=== PATIENT | male | born 1990 | race Caucasian/White ===

== ENCOUNTER 2018-08-08 05:20 | Emergency (ER) | payer OTHER ==
[~2018-08-08] VITALS: Ht 175.3 cm; Wt 85.7 kg
[2018-08-08 05:28] VITALS: BP_SYST 147
--- NOTE | 2018-08-08 05:28 | NUR ---
Patient to ER bed 8 to gown for evaluation. Side rails up.
--- NOTE | 2018-08-08 05:30 | NUR ---
Pt came to the ED for a sore throat with associated blood. Reported vomiting after. Reports he was brushing his teeth and noticed some bleeding of his gums. Reported some body aches, nausea and weakness. Reports taking Tylenol witho no improvement. No other injuries/complaints noted. Will cont. to monitor.
--- NOTE | 2018-08-08 05:36 | NUR ---
ER Dr. Coley at bedside examining patient.
[2018-08-08] MEDS ORDERED: PREDNISONE 20 MG TABLET PO ONE (05:45)
[2018-08-08] MEDS ORDERED: cefTRIAXone 1 GM VIAL IM ONE (05:45)
[2018-08-08] MEDS ORDERED: ONDANSETRON 4 MG ODT TAB PO ONE (05:45)
[2018-08-08] MEDS ORDERED: LIDOCAINE 1%, 20 ML MDV 20 ML ONE (05:58)
[2018-08-08 06:05] VITALS: BP_SYST 147
--- NOTE | 2018-08-08 06:05 | NUR ---
Patient given written and verbal discharge instructions and verbalizes understanding. ER MD Dr. Coley discussed with patient the results and treatment provided. Patient in stable condition. ID arm band removed. Rx of Flomax, norco and motrin given. Patient educated on pain management and to follow up with PMD. Pain Scale 0/10. Opportunity for questions provided and answered. Medication side effect fact sheet provided.
== END 2018-08-08 06:05 | disposition home or self-care (01) ==
LOC: SED 05:20
DX: J36 Peritonsillar abscess (principal); R53.83 Other fatigue
CPT/HCPCS: 96372; 99283; J0696; J2001; J7512; Q0162

== ENCOUNTER 2019-05-05 11:42 | Emergency (ER) | payer OTHER ==
[~2019-05-05] VITALS: Ht 175.3 cm; Wt 97.5 kg
[2019-05-05 11:47] VITALS: BP_SYST 147
--- NOTE | 2019-05-05 11:55 | NUR ---
Patient triaged and placed in waiting room. VSS and patient appears in no acute distress at this time. Accompanied by , awaiting available bed, and MD notified of need for MSE.
--- NOTE | 2019-05-05 12:45 | NUR ---
Patient to ER bed 1 to gown for evaluation. Side rails up.
[2019-05-05] MEDS ORDERED: KETOROLAC TROMETHAMINE 30 MG VIAL IVP ONE (13:00)
--- NOTE | 2019-05-05 13:00 | NUR ---
ER at bedside examining patient.
--- NOTE | 2019-05-05 13:15 | NUR ---
Patient is taken to CT via gurney, in stable condition.
--- NOTE | 2019-05-05 13:30 | NUR ---
Meir roy in ED - 05/05/19 at 1957 by AVANI Patient to bed 1 to kellyman[facility] for evaluation. Side rails up.
--- NOTE | 2019-05-05 13:30 | NUR ---
# 20 gauge angiocath placed to LAC. Use of asceptic technique. Opsite placed over site. Blood return noted. Blood for lab drawn from site. Flushed with 10 cc of normal saline. No evidence of infiltration noted. Patient tolerated well.
[2019-05-05 13:42] LABS: BASOPHILS % (AUTO) 0.2 % (0.0-2.0); EOSINOPHILS # (AUTO) 0.1 K/uL (0.0-0.4); HEMATOCRIT 45.7 % (36-54); HEMOGLOBIN 15.7 g/dL (14.0-18.0); LYMPHOCYTES # (AUTO) 0.9 K/uL (1.0-5.5); LYMPHOCYTES % (AUTO) 13.9 % (20.5-51.5); MEAN CORPUSCULAR HEMOGLOBIN 32 pg (27-31); MEAN CORPUSCULAR HGB CONC 34 % (32-36); MEAN CORPUSCULAR VOLUME 92 fL (79.0-98.0); MONOCYTES # (AUTO) 0.5 K/uL (0.0-1.0); MONOCYTES % (AUTO) 7.6 % (1.7-9.3); NEUTROPHILS # (AUTO) 5.1 K/uL (1.8-7.7); NEUTROPHILS % (AUTO) 76.3 % (40.0-70.0); PLATELET COUNT (AUTO) 147 K/uL (130-430); RED BLOOD CELL COUNT(AUTO) 4.97 MIL/uL (4.2-6.2); RED CELL DISTRIBUTION WIDTH 12.9 % (9.0-15.0); WHITE BLOOD COUNT (AUTO) 6.7 K/uL (4.8-10.8)
[2019-05-05] MEDS ORDERED: NACL 0.9% 1,000 ML IV ONE (13:45)
[2019-05-05 13:53] LABS: CALCIUM 8.7 mg/dL (8.4-11.0); CREATININE 0.82 mg/dL (0.55-1.30); POTASSIUM 3.8 mmol/L (3.5-5.1)
--- NOTE | 2019-05-05 14:00 | NUR ---
pt toleratd medication well.
[2019-05-05 14:10] LABS: ALBUMIN 3.7 g/dL (3.4-4.8); TOTAL BILIRUBIN 1.2 mg/dL (0.0-1.0)
[2019-05-05 14:49] VITALS: BP_SYST 140
--- NOTE | 2019-05-05 14:49 | NUR ---
Patient given written and verbal discharge instructions and verbalizes understanding. ER MD discussed with patient the results and treatment provided. Patient in stable condition. ID arm band removed. IV catheter removed intact and dressing applied, no active bleeding. Rx of golytely,tramadol given. Patient educated on pain management and to follow up with PMD. Pain Scale 2. Opportunity for questions provided and answered. Medication side effect fact sheet provided.
== END 2019-05-05 14:49 | disposition home or self-care (01) ==
LOC: SED 11:42
DX: R10.84 Generalized abdominal pain (principal); R11.2 Nausea with vomiting, unspecified
CPT/HCPCS: 36415; 74176; 80053; 83605; 83690; 85025; 96361; 96374; 99284; J1885; J7030

== ENCOUNTER 2020-02-22 19:52 | Emergency (ER) | payer BC, SELFPAY ==
[~2020-02-22] VITALS: Ht 175.3 cm; Wt 81.6 kg
[2020-02-22 20:17] VITALS: BP_SYST 120
--- NOTE | 2020-02-22 20:20 | NUR ---
Patient triaged and placed in ER Tent. VSS and patient appears in no acute distress at this time. Awaiting available bed, and MD notified of need for MSE.
--- NOTE | 2020-02-22 20:21 | NUR ---
Patient came from home for evaluation of SOB and chest pain. Patient reports he tested positive for the COVID-19 on Sunday.
--- NOTE | 2020-02-22 21:15 | NUR ---
LAVELLE Maxwell in tent examining patient.
[2020-02-22 22:24] LABS: BASOPHILS % (AUTO) 0.5 % (0.0-2.0); EOSINOPHILS % (AUTO) 0.1 % (0.0-4.0); HEMATOCRIT 47.6 % (36-54); HEMOGLOBIN 16.7 g/dL (14.0-18.0); LYMPHOCYTES # (AUTO) 0.5 K/uL (1.0-5.5); LYMPHOCYTES % (AUTO) 7.2 % (20.5-51.5); MEAN CORPUSCULAR HEMOGLOBIN 32 pg (27-31); MEAN CORPUSCULAR HGB CONC 35 % (32-36); MEAN CORPUSCULAR VOLUME 90 fL (79.0-98.0); MONOCYTES # (AUTO) 0.4 K/uL (0.0-1.0); MONOCYTES % (AUTO) 5.3 % (1.7-9.3); NEUTROPHILS # (AUTO) 6.1 K/uL (1.8-7.7); NEUTROPHILS % (AUTO) 86.9 % (40.0-70.0); PLATELET COUNT (AUTO) 137 K/uL (130-430); RED BLOOD CELL COUNT(AUTO) 5.26 MIL/uL (4.2-6.2); RED CELL DISTRIBUTION WIDTH 12.4 % (9.0-15.0); WHITE BLOOD COUNT (AUTO) 7.1 K/uL (4.8-10.8)
[2020-02-22 22:34] LABS: CALCIUM 8.8 mg/dL (8.4-11.0); CREATININE 0.86 mg/dL (0.55-1.30); POTASSIUM 3.7 mmol/L (3.5-5.1)
[2020-02-22 22:41] LABS: ALBUMIN 3.7 g/dL (3.4-4.8); TOTAL BILIRUBIN 0.9 mg/dL (0.0-1.0)
[2020-02-22 22:44] LABS: INR 0.9 (0.80-1.20); PROTHROMBIN TIME 9.3 SECS (9.5-12.5)
[2020-02-22 23:19] VITALS: BP_SYST 118
--- NOTE | 2020-02-22 23:21 | NUR ---
Patient given written and verbal discharge instructions and verbalizes understanding. ER MD discussed with patient the results and treatment provided. Patient in stable condition. ID arm band removed. Patient educated on pain management and to follow up with PMD. Pain Scale 0/10. Opportunity for questions provided and answered. Medication side effect fact sheet provided.
== END 2020-02-22 23:21 | disposition home or self-care (01) ==
LOC: SED 19:52
DX: U07.1 COVID-19 (principal); R06.02 Shortness of breath; R07.89 Other chest pain
CPT/HCPCS: 36415; 71045; 80053; 82550-TC; 83880; 84484; 85025; 85379; 85610-TC; 93005; 99284

== ENCOUNTER 2020-11-02 17:16 | Emergency (ER) | payer BC, SELFPAY ==
[~2020-11-02] VITALS: Ht 175.3 cm; Wt 83.9 kg
[2020-11-02 17:38] VITALS: BP_SYST 126
[2020-11-02 19:25] LABS: EOSINOPHILS # (AUTO) 0.1 K/uL (0.0-0.4); MONOCYTES # (AUTO) 0.5 K/uL (0.0-1.0); NEUTROPHILS # (AUTO) 2.1 K/uL (1.8-7.7)
[2020-11-02 19:32] LABS: BASOPHILS % (AUTO) 0.7 % (0.0-2.0); EOSINOPHILS % (AUTO) 1.1 % (0.0-4.0); HEMATOCRIT 42.6 % (36-54); HEMOGLOBIN 15.3 g/dL (14.0-18.0); LYMPHOCYTES # (AUTO) 2.7 K/uL (1.0-5.5); LYMPHOCYTES % (AUTO) 50.5 % (20.5-51.5); MEAN CORPUSCULAR HEMOGLOBIN 33 pg (27-31); MEAN CORPUSCULAR HGB CONC 36 % (32-36); MEAN CORPUSCULAR VOLUME 92 fL (79.0-98.0); MONOCYTES % (AUTO) 9.2 % (1.7-9.3); NEUTROPHILS % (AUTO) 38.5 % (40.0-70.0); PLATELET COUNT (AUTO) 111 K/uL (130-430); RED BLOOD CELL COUNT(AUTO) 4.64 MIL/uL (4.2-6.2); RED CELL DISTRIBUTION WIDTH 12.6 % (9.0-15.0); WHITE BLOOD COUNT (AUTO) 5.4 K/uL (4.8-10.8)
[2020-11-02 19:36] LABS: CALCIUM 8.1 mg/dL (8.4-11.0); CREATININE 1.01 mg/dL (0.55-1.30); POTASSIUM 4.1 mmol/L (3.5-5.1)
[2020-11-02 19:42] LABS: ALBUMIN 3.5 g/dL (3.4-4.8); TOTAL BILIRUBIN 1.1 mg/dL (0.0-1.0)
--- NOTE | 2020-11-02 20:40 | NUR ---
Patient to ER bed HALLWAY 1 to gown for evaluation. Side rails up.
--- NOTE | 2020-11-02 20:41 | NUR ---
PATIENT AAOX4 AND AMBULATORY FROM HOME C/O HIGH BLOOD SUGAR READING AT HOME 345. FEELING INCREASED THURST, CONSTANT HEADACHES, FREQUENCY IN URINE. VSS. DENIES SOB OR CHEST PAIN. TOOK ADVIL BEFORE ARRIVING WITH PAIN RELIEF.
[2020-11-02 20:46] LABS: BILIRUBIN,URINE NEGATIVE (NEGATIVE); BLOOD, URINE NEGATIVE (NEGATIVE); CLARITY/URINE CLEAR (CLEAR); COLOR,URINE YELLOW (YELLOW); GLUCOSE,URINE 3+ (NEGATIVE); KETONES,URINE TRACE (NEGATIVE); LEUKOCYTE ESTERASE ,URINE NEGATIVE (NEGATIVE); NITRITE, URINE NEGATIVE (NEGATIVE); PH,URINE 5.5 (5.0-8.0); PROTEIN URINE NEGATIVE (NEGATIVE); UROBILINOGEN,URINE 0.2 (0.2-1.0)
[2020-11-02 21:00] LABS: BACTERIA,URINE RARE /HPF (None Seen); WBC,URINE NONE SEEN /HPF (0-3)
[2020-11-02 21:01] LABS: RBC,URINE NONE SEEN /HPF (0-3)
--- NOTE | 2020-11-02 21:09 | NUR ---
DR. WILLIS AT BEDSIDE FOR EVALUATION.
[2020-11-02] MEDS ORDERED: NACL 0.9% 1,000 ML IV ONE (21:15)
--- NOTE | 2020-11-02 21:28 | NUR ---
# 18 gauge angiocath placed to LEFT AC Use of asceptic technique. Opsite placed over site. Blood return noted. Flushed with 10 cc of normal saline. No evidence of infiltration noted. Patient tolerated well. Medicated per MD orders. IVF infusing with no s/s of infiltration at this time. Will cont to monitor
[2020-11-02] MEDS ORDERED: GLU500 PO (22:15)
--- NOTE | 2020-11-02 22:20 | NUR ---
BLOOD GLUCOSE RECHECKED, 227. MD WILLIS MADE AWARE.
[2020-11-02] MEDS ORDERED: metFORMIN HCL 500 MG TABLET PO ONE (22:30)
[2020-11-02 22:34] VITALS: BP_SYST 126
--- NOTE | 2020-11-02 22:34 | NUR ---
Patient given written and verbal discharge instructions and verbalizes understanding. DR. ALBA VALDERRAMA MD discussed with patient the results and treatment provided. Patient in stable condition. ID arm band removed. Rx of METFORMIN given. Patient educated on pain management and to follow up with PMD. Pain Scale 0/10. Opportunity for questions provided and answered. Medication side effect fact sheet provided.
== END 2020-11-02 22:34 | disposition home or self-care (01) ==
LOC: SED 17:16
DX: E11.65 Type 2 diabetes mellitus with hyperglycemia (principal); R51.9 Headache, unspecified; Z79.84 Long term (current) use of oral hypoglycemic drugs
CPT/HCPCS: 36415; 80053; 81000; 82962; 85025; 96360; 99283; J7030

== ENCOUNTER 2020-12-12 22:14 | Emergency (ER) | payer BC, MEDICAID ==
[~2020-12-12] VITALS: Ht 172.7 cm; Wt 81.6 kg
[~2020-12-12 22:14] MED LIST: GLU500 PO
[2020-12-12 22:18] VITALS: BP_SYST 126
[2020-12-12] MEDS ORDERED: PANTOPRAZOLE SODIUM 40 MG/VIAL (PROTONIX) IVP ONE (23:30)
[2020-12-12] MEDS ORDERED: LIDOCAINE VISCOUS 2%, 15 ML UDC MM ONE (23:30)
[2020-12-12] MEDS ORDERED: METOCLOPRAMIDE HCL 10 MG/2 ML VIAL IVP ONE (23:30)
[2020-12-12] MEDS ORDERED: MAG-AL HYDROX/SIMETH 30 ML UDC PO ONE (23:30)
[2020-12-12 23:39] LABS: EOSINOPHILS # (AUTO) 0.1 K/uL (0.0-0.4); MONOCYTES # (AUTO) 0.6 K/uL (0.0-1.0); NEUTROPHILS # (AUTO) 3.6 K/uL (1.8-7.7); WHITE BLOOD COUNT (AUTO) 6.8 K/uL (4.8-10.8)
[2020-12-12 23:40] LABS: CALCIUM 8.9 mg/dL (8.4-11.0); CREATININE 0.84 mg/dL (0.55-1.30); POTASSIUM 3.7 mmol/L (3.5-5.1)
[2020-12-12 23:43] LABS: BASOPHILS % (AUTO) 0.3 % (0.0-2.0); EOSINOPHILS % (AUTO) 1.6 % (0.0-4.0); HEMATOCRIT 41.3 % (36-54); HEMOGLOBIN 14.9 g/dL (14.0-18.0); LYMPHOCYTES # (AUTO) 2.4 K/uL (1.0-5.5); LYMPHOCYTES % (AUTO) 35.6 % (20.5-51.5); MEAN CORPUSCULAR HEMOGLOBIN 33 pg (27-31); MEAN CORPUSCULAR HGB CONC 36 % (32-36); MEAN CORPUSCULAR VOLUME 91 fL (79.0-98.0); MONOCYTES % (AUTO) 8.9 % (1.7-9.3); NEUTROPHILS % (AUTO) 53.6 % (40.0-70.0); PLATELET COUNT (AUTO) 133 K/uL (130-430); RED BLOOD CELL COUNT(AUTO) 4.52 MIL/uL (4.2-6.2)
[2020-12-12 23:46] LABS: ALBUMIN 3.6 g/dL (3.4-4.8); TOTAL BILIRUBIN 0.8 mg/dL (0.0-1.0)
[2020-12-13] MEDS ORDERED: NACL 0.9% 1,000 ML IV ONE (01:15)
[2020-12-13] MEDS ORDERED: METO-290 PO (02:55)
[2020-12-13] MEDS ORDERED: PRO40 PO (02:55)
[2020-12-13 03:05] VITALS: BP_SYST 124
== END 2020-12-13 03:05 | disposition home or self-care (01) ==
LOC: SED 22:14
DX: R07.89 Other chest pain (principal); K21.9 Gastro-esophageal reflux disease without esophagitis; E11.9 Type 2 diabetes mellitus without complications; Z79.899 Other long term (current) drug therapy
CPT/HCPCS: 36415; 71045; 80053; 82962; 83690; 84484; 85025; 93005; 96361; 96374; 96375; 99285; C9113; J2001; J2765; J7030

== ENCOUNTER 2021-01-06 05:09 | Emergency (ER) | payer MEDICAID ==
[~2021-01-06] VITALS: Ht 175.3 cm; Wt 81.6 kg
[~2021-01-06 05:09] MED LIST changes: +METO-290 PO; +PRO40 PO
[2021-01-06 05:15] VITALS: BP_SYST 115
[2021-01-06] MEDS ORDERED: KETOROLAC TROMETHAMINE 30 MG VIAL IM ONE (05:30)
[2021-01-06] MEDS ORDERED: ONDANSETRON HCL 4 MG/2 ML VIAL IVP ONE (05:45)
[2021-01-06] MEDS ORDERED: KETOROLAC TROMETHAMINE 30 MG VIAL IVP ONE (05:45)
[2021-01-06] MEDS ORDERED: MORPHINE 4 MG INJ. 4 MG/ML VIAL IVP ONE (05:45)
[2021-01-06] MEDS ORDERED: ASPIRIN 81 MG TAB.CHEW PO ONE (05:45)
[2021-01-06] MEDS ORDERED: ONDANSETRON HCL 4 MG/2 ML VIAL ONE (05:50)
[2021-01-06] MEDS ORDERED: KETOROLAC TROMETHAMINE 30 MG VIAL ONE (05:50)
[2021-01-06] MEDS ORDERED: ASPIRIN 325 MG TABLET (ECOTRIN) PO ONE (05:50)
[2021-01-06] MEDS ORDERED: MORPHINE 4 MG INJ. 4 MG/ML VIAL ONE (05:50)
[2021-01-06 06:17] LABS: BASOPHILS % (AUTO) 0.4 % (0.0-2.0); EOSINOPHILS # (AUTO) 0.1 K/uL (0.0-0.4); EOSINOPHILS % (AUTO) 1.5 % (0.0-4.0); HEMATOCRIT 42.2 % (36-54); HEMOGLOBIN 14.8 g/dL (14.0-18.0); LYMPHOCYTES # (AUTO) 2.2 K/uL (1.0-5.5); LYMPHOCYTES % (AUTO) 28.5 % (20.5-51.5); MEAN CORPUSCULAR HEMOGLOBIN 32 pg (27-31); MEAN CORPUSCULAR HGB CONC 35 % (32-36); MEAN CORPUSCULAR VOLUME 92 fL (79.0-98.0); MONOCYTES # (AUTO) 0.8 K/uL (0.0-1.0); MONOCYTES % (AUTO) 10.8 % (1.7-9.3); NEUTROPHILS # (AUTO) 4.5 K/uL (1.8-7.7); NEUTROPHILS % (AUTO) 58.8 % (40.0-70.0); PLATELET COUNT (AUTO) 205 K/uL (130-430); RED BLOOD CELL COUNT(AUTO) 4.58 MIL/uL (4.2-6.2); RED CELL DISTRIBUTION WIDTH 12.7 % (9.0-15.0); WHITE BLOOD COUNT (AUTO) 7.6 K/uL (4.8-10.8)
[2021-01-06 06:27] LABS: ALBUMIN 3.7 g/dL (3.4-4.8); CALCIUM 8.5 mg/dL (8.4-11.0); CREATININE 0.74 mg/dL (0.55-1.30); POTASSIUM 3.8 mmol/L (3.5-5.1)
[2021-01-06] MEDS ORDERED: ASPI-862 PO (07:52)
[2021-01-06 08:19] VITALS: BP_SYST 115
== END 2021-01-06 08:15 | disposition home or self-care (01) ==
LOC: SED 05:09
DX: I31.9 Disease of pericardium, unspecified (principal); E11.9 Type 2 diabetes mellitus without complications; Z79.84 Long term (current) use of oral hypoglycemic drugs; Z79.899 Other long term (current) drug therapy
CPT/HCPCS: 36415; 71045; 80053; 83880; 84484; 85025; 93005; 96374; 96375; 99285; J1885; J2270; J2405

== ENCOUNTER 2021-01-09 08:15 | Emergency (ER) | payer MEDICAID ==
[~2021-01-09] VITALS: Ht 175.3 cm; Wt 79.4 kg
[~2021-01-09 08:15] MED LIST changes: +ASPI-862 PO
[2021-01-09 08:20] VITALS: BP_SYST 139
--- NOTE | 2021-01-09 08:25 | NUR ---
Patient to ER bed 6 for evaluation. Side rails up. Assumed care.
--- NOTE | 2021-01-09 08:30 | NUR ---
Pt. bib with c/o chest pain, mild SOB, and CRUMP, pt. states was here and dx. with pericarditis and told to come in today for f/u, pt. states little to no improvement in symptoms, rhonci heard on lung auscultation, rates pain 08/12
--- NOTE | 2021-01-09 08:30 | NUR ---
ER at bedside examining patient.
--- NOTE | 2021-01-09 08:53 | NUR ---
EKG faxed to [facility] for reading
--- NOTE | 2021-01-09 08:53 | NUR ---
Faxed EKG to [facility] ER. will call to [facility] if [facility] has received EKG.
--- NOTE | 2021-01-09 08:58 | NUR ---
Faxed EKG to [facility], Spoke to Chucky. fax: [phone]
[2021-01-09] MEDS ORDERED: COLCHICINE 0.6 MG TABLET PO ONE (09:00)
[2021-01-09 09:08] LABS: BASOPHILS % (AUTO) 0.6 % (0.0-2.0); EOSINOPHILS # (AUTO) 0.1 K/uL (0.0-0.4); HEMATOCRIT 38.7 % (36-54); HEMOGLOBIN 13.4 g/dL (14.0-18.0); LYMPHOCYTES # (AUTO) 1.7 K/uL (1.0-5.5); LYMPHOCYTES % (AUTO) 24.5 % (20.5-51.5); MEAN CORPUSCULAR HEMOGLOBIN 32 pg (27-31); MEAN CORPUSCULAR HGB CONC 35 % (32-36); MEAN CORPUSCULAR VOLUME 92 fL (79.0-98.0); MONOCYTES # (AUTO) 0.8 K/uL (0.0-1.0); MONOCYTES % (AUTO) 11.3 % (1.7-9.3); NEUTROPHILS # (AUTO) 4.3 K/uL (1.8-7.7); NEUTROPHILS % (AUTO) 61.6 % (40.0-70.0); PLATELET COUNT (AUTO) 211 K/uL (130-430); RED CELL DISTRIBUTION WIDTH 12.7 % (9.0-15.0); WHITE BLOOD COUNT (AUTO) 6.9 K/uL (4.8-10.8)
--- NOTE | 2021-01-09 09:08 | NUR ---
Chucky [facility], called back and stated she has spoke to the [employer]electric [employer] electrical engineer and he stated that it is not a STEMI, call transferred to Dr. Araujo to speak to Chucky.
[2021-01-09 09:31] LABS: CALCIUM 8.4 mg/dL (8.4-11.0); CREATININE 0.81 mg/dL (0.55-1.30); POTASSIUM 3.7 mmol/L (3.5-5.1)
[2021-01-09 09:36] LABS: ALBUMIN 3.2 g/dL (3.4-4.8); TOTAL BILIRUBIN 1.2 mg/dL (0.0-1.0)
[2021-01-09] MEDS ORDERED: IBUPROFEN 800 MG TABLET PO ONE (09:45)
[2021-01-09 10:09] LABS: C-REACTIVE PROTEIN QUANT 20.8 mg/dL (0-0.5)
[2021-01-09] MEDS ORDERED: IBUPROFEN 800 MG TABLET ONE (10:52)
[2021-01-09] MEDS ORDERED: COLCHICINE 0.6 MG TABLET PO SCH (11:00)
[2021-01-09] MEDS ORDERED: COLC0.6T67 PO (11:01)
[2021-01-09] MEDS ORDERED: HYDR-3917 PO (11:32)
[2021-01-09 11:40] VITALS: BP_SYST 116
--- NOTE | 2021-01-09 11:42 | NUR ---
Patient given written and verbal discharge instructions and verbalizes understanding. ER Dr. Araujo discussed with patient the results and treatment provided. Patient in stable condition. ID arm band removed. IV catheter removed intact and dressing applied, no active bleeding. Rx of Colchicine given. Patient educated on pain management and to follow up with PMD. Pain Scale 0. Opportunity for questions provided and answered. Medication side effect fact sheet provided.
== END 2021-01-09 11:42 | disposition home or self-care (01) ==
LOC: SED 08:15
DX: I31.9 Disease of pericardium, unspecified (principal); E11.9 Type 2 diabetes mellitus without complications; Z79.82 Long term (current) use of aspirin; Z79.899 Other long term (current) drug therapy
CPT/HCPCS: 36415; 71045; 80053; 82550; 83605; 83880; 84484; 85025; 86140; 93005; 99285

== ENCOUNTER 2021-05-04 04:51 | Emergency (ER) | payer MEDICAID ==
[~2021-05-04] VITALS: Ht 175.3 cm; Wt 81.6 kg
[~2021-05-04 04:51] MED LIST changes: +COLC0.6T67 PO; +HYDR-3917 PO
[2021-05-04 05:00] VITALS: BP_SYST 137
[2021-05-04] MEDS ORDERED: NACL 0.9% 1,000 ML IV ONE (05:15)
[2021-05-04] MEDS ORDERED: ONDANSETRON HCL 4 MG/2 ML VIAL IVP ONE (05:15)
[2021-05-04] MEDS ORDERED: KETOROLAC TROMETHAMINE 30 MG VIAL IVP ONE (05:15)
[2021-05-04 05:30] VITALS: BP_SYST 137
[2021-05-04] MEDS ORDERED: ONDA-8 TL (06:16)
== END 2021-05-04 06:10 | disposition home or self-care (01) ==
LOC: SED 04:51
DX: A08.4 Viral intestinal infection, unspecified (principal); E11.9 Type 2 diabetes mellitus without complications; Z79.899 Other long term (current) drug therapy
CPT/HCPCS: 96374; 96375; 99284; J1885; J2405

== ENCOUNTER 2021-11-07 07:47 | Emergency (ER) | payer MEDICAID ==
[~2021-11-07] VITALS: Ht 175.3 cm; Wt 82.6 kg
[~2021-11-07 07:47] MED LIST changes: +ONDA-8 TL
[2021-11-07 07:57] VITALS: BP_SYST 125
--- NOTE | 2021-11-07 08:00 | NUR ---
Patient to ER bed 4 to gown for evaluation. Side rails up. Report given to Nayely PEACE.
--- NOTE | 2021-11-07 08:04 | NUR ---
Assumed care of patient who came from home with gf c/o eye pain and headache r/t cataract surgery two days ago (Sunday). Pt has hx of hyperlipidemia and type II DM. Pt contacted surgeon who made an appt for 11/08/21. Pt states the pain and irriation is becoming unbearable. Denies trauma to eye or loss of vision at this time. A&Ox4, VSS, calm and cooperative. Will continue to monitor and provide care as ordered by provider.
--- NOTE | 2021-11-07 08:04 | NUR ---
LAVELLE Higgins at bedside examining patient.
[2021-11-07] MEDS ORDERED: prednisoLONE 1% OPHTHALMIC SUSPN 5 ML OP ONE (08:45)
[2021-11-07] MEDS ORDERED: OXYCODONE/ACETAMINOPHEN *10*mg/325 mg TABLET PO ONE (08:45)
[2021-11-07] MEDS ORDERED: OFLOXACIN 0.3% OPHTHALMIC DROPS 5 ML OP ONE (08:45)
[2021-11-07] MEDS ORDERED: IBUP-1969 PO ×2 (09:36)
[2021-11-07] MEDS ORDERED: HYDR-3917 PO (09:36)
--- NOTE | 2021-11-07 10:13 | NUR ---
Patient given written and verbal discharge instructions and verbalizes understanding. ER MD discussed with patient the results and treatment provided. Patient in stable condition. ID arm band removed. Rx of Norwell and Ibuprofen given. Patient educated on pain management and to follow up with PMD. Pain Scale 2/10. Opportunity for questions provided and answered. Medication side effect fact sheet provided.
[2021-11-07 10:14] VITALS: BP_SYST 125
[2021-11-07] MEDS ORDERED: CIPROFLOXACIN HCL 0.3% EYE DRP 2.5 ML DROPS OP SCH (11:00)
== END 2021-11-07 10:14 | disposition home or self-care (01) ==
LOC: SED 07:47
DX: H11.002 Unspecified pterygium of left eye (principal); E11.9 Type 2 diabetes mellitus without complications; Z79.899 Other long term (current) drug therapy
CPT/HCPCS: 99284

== ENCOUNTER 2023-10-04 22:38 | Emergency (ER) | payer MEDICAID ==
[~2023-10-04] VITALS: Ht 175.3 cm; Wt 79.4 kg
[2023-10-04 22:50] VITALS: BP_SYST 127; PULSE 74; RESP 18; TEMP 98.2; O2SAT 98
[2023-10-05] MEDS ORDERED: FLOEARD EACH EYE (00:03)
== END 2023-10-05 00:30 | disposition home or self-care (01) ==
LOC: SED 22:38
DX: S05.02XA Injury of conjunctiva and corneal abrasion without foreign body, left eye, initial encounter (principal); E11.9 Type 2 diabetes mellitus without complications; E78.5 Hyperlipidemia, unspecified; Z79.899 Other long term (current) drug therapy; Z79.2 Long term (current) use of antibiotics; Z79.82 Long term (current) use of aspirin; X58.XXXA Exposure to other specified factors, initial encounter; Y93.89 Activity, other specified; Y92.89 Other specified places as the place of occurrence of the external cause; Y99.8 Other external cause status
CPT/HCPCS: 99283